=== PATIENT | male | born 1945 | race Caucasian/White ===

== ENCOUNTER 2017-03-16 22:16 | Emergency (ER) | payer MEDICARE, MEDICAID ==
[~2017-03-16] VITALS: Ht 182.9 cm; Wt 81.5 kg
[~2017-03-16 22:16] MED LIST: BUPR-175 PO; EXTR500C PO; PROZ40CA PO; XANA0.5T PO
[2017-03-16 22:18] VITALS: BP 131/81; PULSE 77; RESP 16; TEMP 98.1; O2SAT 98
[2017-03-16] MEDS ORDERED: BUPR100T4 PO (22:59)
[2017-03-16] MEDS ORDERED: PROZ40CA PO (22:59)
[2017-03-16] MEDS ORDERED: ALPR.5 PO (22:59)
[2017-03-16] MEDS ORDERED: SODIUM CHLOR 0.9% 1000 ML INJ 1,000 ML IV SCH (23:11)
[2017-03-16] MEDS ORDERED: SODIUM CHLORIDE 0.9% FLUSH 10 ML FLUSH IV FLUSH PRN (23:15)
[2017-03-16] MEDS ORDERED: DIATRIZOATE MEGLUM/DIATRIZOATE SOD 9 ML CUP ONE ×2 (23:15)
[2017-03-16] MEDS ORDERED: ONDANSETRON HCL 4 MG/2 ML VIAL IVP ONE (23:15)
--- NOTE | 2017-03-16 23:17 | PD ---
HPI Chief Complaint: Abdominal Pain Time Seen by Provider: 23:04 Travel History International Travel<30 days: No Contact w/Intl Traveler<30days: No Traveled to known affect area: No History of Present Illness HPI Patient is a 72-year-old male who presents to emergency room complaints of constipation and abdominal pain. Patient reports that he has history of rectal cancer with history of radiation treatment in the past. Patient reports that for the past 2 days, he has not had a bowel movement. He has had rectal urge, reports that he was afraid to strain as his doctor told him never to strain with BM's. Patient reports that he try taking prune juice as well as stool softeners with no avail. Reports that he then tried eating hot dogs to get his bowels to move - reports that this only caused him to have crampy abdominal pain. Reports that at this time, he has diffuse abdominal pain. Denies any nausea or vomiting or diarrhea at this time. Patient with no fever or chills. Reports only surgeries of tonsillectomy as well patient treatment to his rectum. Patient with no other complaints at this time. PFSH Past Medical History Anxiety: Yes Depression: Yes Cancer: Yes (HX RECTAL) Cardiovascular Problems: No Diabetes: No Diminished Hearing: No Endocrine: No Genitourinary: No Hepatitis: No Hiatal Hernia: No Immune Disorder: No Musculoskeletal: No Neurologic: No Psychiatric: Yes Reproductive: No Respiratory: No Immunizations Current: No Thyroid Disease: No Tetanus Vaccination: > 5 Years Influenza Vaccination: No Past Surgical History Abdominal Surgery: No AICD: No Ear Surgery: No Endocrine Surgery: No Eye Surgery: Yes (LASER R EYE) Genitourinary Surgery: No Joint Replacement: No Oral Surgery: No Pacemaker: No Thoracic Surgery: No Tonsillectomy: Yes Tympanostomy Tube: Yes Social History Alcohol Use: No Tobacco Use: No Substance Use: No Allergies-Medications (Allergen,Severity, Reaction): Coded Allergies: cephalexin (Verified Allergy, Mild, GI UPSET, 03/16/17) Reported Meds & Prescriptions Reported Meds & Active Scripts Active Miralax Powder (Polyethylene Glycol 3350 Powder) 17 Gm Powd 17 Gm PO DAILY Mix and dissolve one measuring cap-ful (17 grams) in water or juice. Reported Xanax (Alprazolam) 0.5 Mg Tab 0.5 Mg PO Q8H PRN Bupropion HCl 100 Mg Tab 100 Mg PO DAILY Prozac (Fluoxetine HCl) 40 Mg Cap 40 Mg PO DAILY Review of Systems General / Constitutional: No: Fever Eyes: No: Visual changes HENT: No: Headaches Cardiovascular: No: Chest Pain or Discomfort Respiratory: No: Shortness of Breath Gastrointestinal: Positive: Abdominal Pain, Constipation, No: Nausea, Vomiting , Diarrhea Genitourinary: No: Dysuria Musculoskeletal: No: Pain Skin: No Rash Neurologic: No: Weakness Psychiatric: No: Depression Endocrine: No: Polydipsia Hematologic/Lymphatic: No: Easy Bruising Physical Exam Narrative GENERAL: Mild distress SKIN: Focused skin assessment warm/dry. HEAD: Atraumatic. Normocephalic. EYES: Pupils equal and round. No scleral icterus. No injection or drainage. ENT: No nasal bleeding or discharge. Mucous membranes pink and moist. NECK: Trachea midline. No JVD. CARDIOVASCULAR: Regular rate and rhythm. No murmur appreciated. RESPIRATORY: No accessory muscle use. Clear to auscultation. Breath sounds equal bilaterally. GASTROINTESTINAL: Abdomen soft, diffusely tender, nondistended. Hepatic and splenic margins not palpable. MUSCULOSKELETAL: No obvious deformities. No clubbing. No cyanosis. No edema. NEUROLOGICAL: Awake and alert. No obvious cranial nerve deficits. Motor grossly within normal limits. Normal speech. PSYCHIATRIC: Appropriate mood and affect; insight and judgment normal. Data Data Last Documented VS Vital Signs Date Time Temp Pulse Resp B/P (MAP) Pulse Ox O2 Delivery O2 Flow Rate FiO2 03/16/17 22:18 98.1 77 16 131/81 (98) 98 Orders Orders Complete Blood Count With Diff (03/16/17 23:11) Comprehensive Metabolic Panel (03/16/17 23:11) Prothrombin Time / Inr (Pt) (03/16/17 23:11) Act Partial Throm Time (Ptt) (03/16/17 23:11) Ct Abd/Pel W Iv Contrast(Rout) (03/16/17 23:11) Iv Access Insert/Monitor (03/16/17 23:11) Ecg Monitoring (03/16/17 23:11) NPO (03/16/17 23:11) Ondansetron Inj (Zofran Inj) (03/16/17 23:15) Sodium Chlor 0.9% 1000 Ml Inj (Ns 1000 M (03/16/17 23:11) Sodium Chloride 0.9% Flush (Ns Flush) (03/16/17 23:15) Diatrizoate Liq (Md Salgado Liq) (03/16/17 23:15) Diatrizoate Liq (Md Salgado Liq) (03/16/17 23:15) Oral Contrast - Adult (03/16/17 23:16) Fleets Enema (Adult) (Fleets Enema (Adul (03/17/17 00:45) Iohexol 350 Inj (Omnipaque 350 Inj) (03/17/17 01:09) Labs Laboratory Tests Test 03/16/17 23:18 White Blood Count 6.8 TH/MM3 Red Blood Count 3.63 MIL/MM3 Hemoglobin 12.5 GM/DL Hematocrit 37.0 % Mean Corpuscular Volume 101.9 FL Mean Corpuscular Hemoglobin 34.5 PG Mean Corpuscular Hemoglobin Concent 33.9 % Red Cell Distribution Width 12.8 % Platelet Count 216 TH/MM3 Mean Platelet Volume 6.7 FL Neutrophils (%) (Auto) 72.7 % Lymphocytes (%) (Auto) 17.3 % Monocytes (%) (Auto) 6.3 % Eosinophils (%) (Auto) 3.6 % Basophils (%) (Auto) 0.1 % Neutrophils # (Auto) 5.0 TH/MM3 Lymphocytes # (Auto) 1.2 TH/MM3 Monocytes # (Auto) 0.4 TH/MM3 Eosinophils # (Auto) 0.2 TH/MM3 Basophils # (Auto) 0.0 TH/MM3 CBC Comment DIFF FINAL Differential Comment Prothrombin Time 10.7 SEC Prothromb Time International Ratio 1.0 RATIO Activated Partial Thromboplast Time 30.3 SEC Blood Urea Nitrogen 13 MG/DL Creatinine 1.04 MG/DL Random Glucose 123 MG/DL Total Protein 7.7 GM/DL Albumin 3.8 GM/DL Calcium Level 8.8 MG/DL Alkaline Phosphatase 76 U/L Aspartate Amino Transf (AST/SGOT) 15 U/L Alanine Aminotransferase (ALT/SGPT) 21 U/L Total Bilirubin 0.4 MG/DL Sodium Level 142 MEQ/L Potassium Level 4.3 MEQ/L Chloride Level 110 MEQ/L Carbon Dioxide Level 24.6 MEQ/L Anion Gap 7 MEQ/L Estimat Glomerular Filtration Rate 70 ML/MIN MDM Medical Decision Making Medical Screen Exam Complete: Yes Emergency Medical Condition: Yes Interpretation(s) Vital Signs Date Time Temp Pulse Resp B/P (MAP) Pulse Ox O2 Delivery O2 Flow Rate FiO2 03/16/17 22:18 98.1 77 16 131/81 (98) 98 Differential Diagnosis Differential includes constipation, small bowel obstruction Narrative Course 72-year-old male who presents to emergency room with complaints of constipation for the past 2 days. Plan to obtain basic blood work, will obtain CT of the abdomen and pelvis to rule out obstruction. Discussed need to perform rectal exam to evaluate for rectal impaction which patient is refusing at this time. Patient agreeable to workup and ct but not to rectal exam at this time. Vital Signs Date Time Temp Pulse Resp B/P (MAP) Pulse Ox O2 Delivery O2 Flow Rate FiO2 03/16/17 22:18 98.1 77 16 131/81 (98) 98 Laboratory Tests Test 03/16/17 23:18 White Blood Count 6.8 TH/MM3 (4.0-11.0) Red Blood Count 3.63 MIL/MM3 (4.50-5.90) Hemoglobin 12.5 GM/DL (13.0-17.0) Hematocrit 37.0 % (39.0-51.0) Mean Corpuscular Volume 101.9 FL (80.0-100.0) Mean Corpuscular Hemoglobin 34.5 PG (27.0-34.0) Mean Corpuscular Hemoglobin Concent 33.9 % (32.0-36.0) Red Cell Distribution Width 12.8 % (11.6-17.2) Platelet Count 216 TH/MM3 (150-450) Mean Platelet Volume 6.7 FL (7.0-11.0) Neutrophils (%) (Auto) 72.7 % (16.0-70.0) Lymphocytes (%) (Auto) 17.3 % (9.0-44.0) Monocytes (%) (Auto) 6.3 % (0.0-8.0) Eosinophils (%) (Auto) 3.6 % (0.0-4.0) Basophils (%) (Auto) 0.1 % (0.0-2.0) Neutrophils # (Auto) 5.0 TH/MM3 (1.8-7.7) Lymphocytes # (Auto) 1.2 TH/MM3 (1.0-4.8) Monocytes # (Auto) 0.4 TH/MM3 (0-0.9) Eosinophils # (Auto) 0.2 TH/MM3 (0-0.4) Basophils # (Auto) 0.0 TH/MM3 (0-0.2) CBC Comment DIFF FINAL Differential Comment Prothrombin Time 10.7 SEC (9.8-11.6) Prothromb Time International Ratio 1.0 RATIO Activated Partial Thromboplast Time 30.3 SEC (24.3-30.1) Blood Urea Nitrogen 13 MG/DL (7-18) Creatinine 1.04 MG/DL (0.60-1.30) Random Glucose 123 MG/DL (74-106) Total Protein 7.7 GM/DL (6.4-8.2) Albumin 3.8 GM/DL (3.4-5.0) Calcium Level 8.8 MG/DL (8.5-10.1) Alkaline Phosphatase 76 U/L (45-117) Aspartate Amino Transf (AST/SGOT) 15 U/L (15-37) Alanine Aminotransferase (ALT/SGPT) 21 U/L (12-78) Total Bilirubin 0.4 MG/DL (0.2-1.0) Sodium Level 142 MEQ/L (136-145) Potassium Level 4.3 MEQ/L (3.5-5.1) Chloride Level 110 MEQ/L (98-107) Carbon Dioxide Level 24.6 MEQ/L (21.0-32.0) Anion Gap 7 MEQ/L (5-15) Estimat Glomerular Filtration Rate 70 ML/MIN (>89) Last Impressions Abdomen/Pelvis CT 03/16/17 6921 Signed Impressions: Service Date/Time: Friday, March 17, 2017 01:06 - CONCLUSION: 1. Diffuse distention of the colon without inflammatory process. This suggests a colonic ileus. A moderate amount of stool within the sigmoid colon. 2. Tiny low-density lesion involving the liver and spleen. These are too small to accurately characterize with CT. The lesion locations would make ultrasound evaluation very difficult. An outpatient followup MRI could be utilized to further characterize these lesions if clinically warranted. Wayne Crook Jr., MD patient with moderate amount of stool within sigmoid colon suggesting colonic ileus. Patient requests an enema prior to digital exam. After enema was administered, patient reported significant emergency to defecate, reports that he was unable to defecate. I did a digital rectal exam on patient and was able to evacuate a hard stool bolus, after this, patient evacuated a large amount of stool. Patient had multiple bowel movements while in the ER. Reports complete resolution at this time. Patient requesting to be discharged to home. I discussed with patient need to follow-up in the emergency room or his primary care doctor in 12 hours, he will return to ER if symptoms return. Signs and symptoms of when to return to the ER was reviewed with patient in detail. A copy of pt's ct reports was given to him at discharge as he will need to follow up with all incidental findings from today. patient reports that he had an MRI to evaluate liver and spleen lesion already. Diagnosis Primary Impression: Constipation Qualified Codes: K59.00 - Constipation, unspecified Additional Impressions: colonic ileus Liver lesion Lesion of spleen Patient Instructions: General Instructions Additional Instructions: Please provide patient with a copy of his lab work and studies at discharge Please follow-up with your primary care doctor in 12 hours Please return to the emergency room symptoms worsen or progress Return to the emergency room as needed Please follow-up with all incidental findings from today Please take MiraLAX twice a day Med/Other Pt SpecificInfo: Prescription(s) given Scripts Polyethylene Glycol 3350 Powder (Miralax Powder) 17 Gm Powd 17 GM PO DAILY for Constipation, #1 CAN 0 Refills Mix and dissolve one measuring cap-ful (17 grams) in water or juice. Prov: Staci Fishman DO 03/17/17 Disposition: 01 DISCHARGE HOME Condition: Stable Staci Fishman DO Mar 16, 2017 23:17
[2017-03-16 23:32] LABS: BASOPHIL % 0.1 % (0.0-2.0); EOSINOPHIL # 0.2 TH/MM3 (0-0.4); EOSINOPHIL % 3.6 % (0.0-4.0); HEMO FLAGS DIFF FINAL; LYMPH % 17.3 % (9.0-44.0); LYMPHOCYTE # 1.2 TH/MM3 (1.0-4.8); MEAN CELL VOLUME 101.9 FL (80.0-100.0); MEAN CORPUSCULAR HEMOGLOBIN 34.5 PG (27.0-34.0); MEAN CORPUSCULAR HGB CONC 33.9 % (32.0-36.0); MONO % 6.3 % (0.0-8.0); NEUT % 72.7 % (16.0-70.0); PLATELET COUNT 216 TH/MM3 (150-450); RED BLOOD COUNT 3.63 MIL/MM3 (4.50-5.90); RED CELL DISTRIBUTION WIDTH 12.8 % (11.6-17.2); WHITE BLOOD COUNT 6.8 TH/MM3 (4.0-11.0)
[2017-03-16 23:43] LABS: ANION GAP 7 MEQ/L (5-15); AST (GOT) 15 U/L (15-37); BICARBONATE 24.6 MEQ/L (21.0-32.0); BLOOD UREA NITROGEN 13 MG/DL (7-18); CHLORIDE 110 MEQ/L (98-107); GLOMERULAR FILTRATION RATE 70 ML/MIN (>89); POTASSIUM 4.3 MEQ/L (3.5-5.1); SODIUM (NA) 142 MEQ/L (136-145)
[2017-03-16 23:46] LABS: APTT (PATIENT) 30.3 SEC (24.3-30.1); PROTHROMBIN TIME - PATIENT 10.7 SEC (9.8-11.6)
[2017-03-16 23:47] LABS: ALKALINE PHOSPHATASE 76 U/L (45-117); ALT (GPT) 21 U/L (12-78); TOTAL BILIRUBIN ADULT 0.4 MG/DL (0.2-1.0)
[2017-03-17] MEDS ORDERED: SOD PHOSPHATE/SOD BIPHOSPHATE (ADULT) ENEMA 133ML RECTAL ONE (00:45)
[2017-03-17 01:00] VITALS: BP 139/77; PULSE 80; RESP 18; O2SAT 99
[2017-03-17] MEDS ORDERED: IOHEXOL 350 MG/ML 10 ML VIAL (for RAD DIAG) IVCONTRAST ONE (01:09)
--- NOTE | 2017-03-17 01:27 | RADRPT ---
EXAM DATE/TIME: 03/17/2017 01:06 [facility] COMPARISON: CT ABDOMEN & PELVIS W/O CONTRAST, December 19, 2014, 20:34. INDICATIONS : Abdominal pain and constipation. IV CONTRAST: 98 cc Omnipaque 350 (iohexol) IV ORAL CONTRAST: Prescribed oral contrast ingested. RADIATION DOSE: 7.20 CTDIvol (mGy) MEDICAL HISTORY : Carcinoma, rectal. SURGICAL HISTORY : Tonsillectomy. ENCOUNTER: Initial ACUITY: 3 days PAIN SCALE: 7/10 LOCATION: abdomen TECHNIQUE: Volumetric scanning of the abdomen and pelvis was performed. Using automated exposure control and ad justment of the mA and/or kV according to patient size, radiation dose was kept as low as reasonably achievable to obtain optimal diagnostic quality images. DICOM format image data is available electro nically for review and comparison. FINDINGS: LOWER LUNGS: The visualized lower lungs are clear. LIVER: Homogeneous density. There is a solitary low attenuation lesion involving segment 4 the liver near th e dome. This measures 7 mm in size. There is no dilation of the biliary tree. No calcified gallstone s. SPLEEN: Normal size. A 9 mm lesion is seen involving the spleen adjacent to the dome of the liver. It is low in density. PANCREAS: Within normal limits. KIDNEYS: Normal in size and shape. There is no mass, stone or hydronephrosis. ADRENAL GLANDS: Within normal limits. VASCULAR: There is no aortic aneurysm. BOWEL/MESENTERY: There is diffuse distention of the colon which is more pronounced involving the ascending colon. No i nflammatory change involving the wall or adjacent mesentery. No obstructing mass or lesion. No volvul us appreciated. Small bowel and stomach are unremarkable. No free air or free fluid. ABDOMINAL WALL: Within normal limits. RETROPERITONEUM: There is no lymphadenopathy. BLADDER: No wall thickening or mass. REPRODUCTIVE: Within normal limits. INGUINAL: There is no lymphadenopathy or hernia. MUSCULOSKELETAL: Within normal limits for patient age. CONCLUSION: 1. Diffuse distention of the colon without inflammatory process. This suggests a colonic ileus. A mod erate amount of stool within the sigmoid colon. 2. Tiny low-density lesion involving the liver and spleen. These are too small to accurately characte rize with CT. The lesion locations would make ultrasound evaluation very difficult. An outpatient [facility] MRI could be utilized to further characterize these lesions if clinically warranted. Wayne Crook Jr., MD on March 17, 2017 at 1:19 Board Certified Radiologist. This report was verified electronically.
[2017-03-17] MEDS ORDERED: MIRA3350 PO (03:16)
[2017-03-17 04:00] VITALS: BP 133/68; PULSE 83; RESP 18; O2SAT 99
== END 2017-03-17 05:15 | disposition home or self-care (01) ==
LOC: NEPC 22:16
DX: K56.7 Ileus, unspecified (principal); K76.9 Liver disease, unspecified
CPT/HCPCS: 74177; 80053; 85025; 85610; 85730; 96361; 96374; 99285; J2405; J7030; Q9963; Q9967

== ENCOUNTER → 2017-12-03 | Outpatient (CLI) | payer MEDICARE, MEDICAID ==
[~2017-12-03] MED LIST changes: +ALPR.5 PO; -BUPR-175 PO; +BUPR100T4 PO; -EXTR500C PO; +MIRA3350 PO; -XANA0.5T PO
--- NOTE | 2017-12-04 14:59 | EKG ---
Date Performed: 12/03/2017 Time Performed: 19:13:10 PTAGE: 72 years EKG: SINUS BRADYCARDIA BORDERLINE ECG INTERPRETATION BASED ON A DEFAULT AGE OF 40 YEARS PREVIOUS TRACING : 12/03/2017 19.10 Since the previous tracing, no significant change not ed DOCTOR: Serafin Jon Interpretating Date/Time 12/04/2017 14:58:31
== END ==
LOC: HRAD 18:38
DX: Z01.812 Encounter for preprocedural laboratory examination (principal); R00.1 Bradycardia, unspecified
CPT/HCPCS: 93005